=== PATIENT | male | born 2000 | race Caucasian/White ===

== ENCOUNTER 2022-07-03 12:06 | Emergency (ER) | payer OTHER, SELFPAY ==
[2022-07-03 12:10] VITALS: BP 127/69; PULSE 65; RESP 18; TEMP 36.8; O2SAT 100
--- OUTSIDE RECORDS SUMMARY | 2022-07-03 12:37 | XMS_ITS | Continuity of Care Document ---
Author Name Unknown Organization [facility] Address [address] [place] [address] Care Team Providers Care Swim Coach Name Role Phone Osorio Ariza Primary Care Physician Encounter [facility] Date(s): 03/06/22 - 03/06/22 [facility] [address] [place] [address] Encounter Diagnosis Strain of Achilles tendon(Discharge Diagnosis) - 03/06/22 Discharge Disposition: Home or Self Care Attending Physician: Osorio Livingston MD Admitting Physician: Osorio Livingston MD Allergies, Adverse Reactions, Alerts No Known Medication Allergies Immunizations Given and Recorded Vaccine Date Status Refusal Reason SARS-CoV-2 (COVID-19) mRNA-1273 vaccine 05/08/21 R ecorded SARS-CoV-2 (COVID-19) mRNA-1273 vaccine 04/14/21 R ecorded varicella virus vaccine 11/12/07 Recorded varicella virus vaccine 01/15/02 Recorded poliovirus vaccine, inactivated 11/16/04 Recorded poliovirus vaccine, inactivated 10/11/01 Recorded poliovirus vaccine, inactivated 03/20/01 Recorded poliovirus vaccine, inactivated 01/06/01 Recorded measles/mumps/rubella virus vaccine 11/16/04 Recor ded measles/mumps/rubella virus vaccine 01/15/02 Recor ded diphtheria/pertussis, acellular/tetanus 11/16/04 R ecorded diphtheria/pertussis, acellular/tetanus 12/17/02 R ecorded diphtheria/pertussis, acellular/tetanus 05/14/02 R ecorded diphtheria/pertussis, acellular/tetanus 10/11/01 R ecorded diphtheria/pertussis, acellular/tetanus 03/20/01 R ecorded diphtheria/pertussis, acellular/tetanus 01/06/01 R ecorded pneumococcal 7-valent vaccine 12/17/02 Recorded pneumococcal 7-valent vaccine 03/20/01 Recorded pneumococcal 7-valent vaccine 01/06/01 Recorded haemophilus b conjugate (PRP-T) vaccine 05/14/02 R ecorded haemophilus b conjugate (PRP-T) vaccine 10/11/01 R ecorded haemophilus b conjugate (PRP-T) vaccine 03/20/01 R ecorded haemophilus b conjugate (PRP-T) vaccine 01/06/01 R ecorded hepatitis B pediatric vaccine 01/15/02 Recorded hepatitis B pediatric vaccine 00 Recorded hepatitis B pediatric vaccine 00 Recorded Medications No Known Medications Vital Signs Most recent to oldest [Reference Range]: 1 Temperature Temporal Artery [36-38 Deg C ] 36.3 Deg C (03/06/22 12:57 PM) Peripheral Pulse Rate [60-100 bpm] 64 bp m (03/06/22 12:57 PM) Respiratory Rate [12-24 br/min] 18 br/mi n (03/06/22 12:57 PM) Blood Pressure [90-140/60-90 mmHg] 124/8 9mmHg (03/06/22 12:57 PM) Weight Dosing 97.52 kg (03/06/22 1:33 PM) Weight Estimated 97.52 kg (03/06/22 12:57 PM) Height/Length Dosing 188.000 cm (03/06/22 1:33 PM) Height/Length Estimated 188.000 cm (03/06/22 12:57 PM) Social History Social History Type Response Tobacco Never tobacco user T obacco Use:. Sex Male Hospital Discharge Instructions Patient Education 03/06/2022 13:35:27 Achilles Tendon Tear Achilles Tendon Tear The Achilles tendon is a cord-like band that connects the muscles of your lower leg (calf) to your heel. The Achilles tendon is the most common site of tendon tearing (rupture). What are the causes? This condition may be caused by: ??? Stress from a sudden stretching of the tendon. For example, this may occur when you land from ajump or when your heel drops down into a hole on uneven ground. ??? A hard, direct hit to the tendon. ??? Pushing off your foot forcefully, such as when sprinting, jumping, or changing direction while running. What increases the risk? You are more likely to develop this condition if you: ??? Are a runner. ??? Play sports that involve sprinting, running, or jumping. ??? Play contact sports. ??? Have a weak Achilles tendon. Tendons can weaken from aging, repeat injuries, and chronic tendinitis. ??? Are male. ??? Are 30???55 years of age. ??? Take a type of antibiotic medicine called quinolones. What are the signs or symptoms? Symptoms of this condition include: ??? Hearing a noise, like a pop or a snap, at the time of injury. ??? Severe, sudden pain in the back of the ankle. ??? Swelling and bruising. ??? Inability to actively point your toes down. ??? Pain when standing or walking. ??? A feeling of reduced strength when you step on the affected foot. How is this diagnosed? This condition is usually diagnosed based on a physical exam. You may also have imaging tests, such as: ??? Ultrasound. ??? X-rays. ??? MRI. How is this treated? This condition may be treated with: ??? Rest. ??? Ice applied to the area. ??? Pain medicine. ??? Crutches. ??? A cast, splint, or other device to keep the ankle from moving (immobilized). ??? Heel wedges to reduce the stretch on your tendon as it heals. ??? Surgery. This option may depend on your age and your activity level. Follow these instructions at home: Medicines ??? Take wwru-mbo-idwaokx and prescription medicines only as told by your health care provider. ??? Ask your health care provider if the medicine prescribed to you: ??? Requires you to avoid driving or using heavy machinery. ??? Can cause constipation. You may need to take these actions to prevent or treat constipation: ??? Drink enough fluid to keep your urine pale yellow. ??? Take kaoy-mia-lhgvopl or prescription medicines. ??? Eat foods that are high in fiber, such as beans, whole grains, and fresh fruits and vegetables. ??? Limit foods that are high in fat and processed sugars, such as fried or sweet foods. If you have a cast: ??? Do not stick anything inside the cast to scratch your skin. Doing that increases your risk of infection. ??? You may put lotion on dry skin around the edges of the cast. Do not put lotion on the skin underneath the cast. If you have a splint or brace: ??? Wear it as told by your health care provider. Remove it only as told by your health care provider. ??? Loosen it if your toes tingle, become numb, or turn cold and blue. If you have a cast, splint, or brace: ??? Keep it clean and dry. ??? Check the skin around it every day. Tell your health care provider about any concerns. ??? Ask your health care provider when it is safe to drive if you have it on a leg or foot that youuse for driving. Bathing ??? Do not take baths, swim, or use a hot tub until your health care provider approves. Ask your health care provider if you may take showers. You may only be allowed to take sponge baths. ??? If the cast, splint, or brace is not waterproof: ??? Do not let it get wet. ??? Cover it with a watertight covering when you take a bath or shower. Managing pain, stiffness, and swelling ??? If directed, put ice on the injured area. ??? If you have a removable splint or brace, remove it as told by your health care provider. ??? Put ice in a plastic bag. ??? Place a towel between your skin and the bag or between your cast and the bag. ??? Leave the ice on for 20 minutes, 2???3 times a day. ??? Move your toes often to avoid stiffness and to lessen swelling. ??? Raise (elevate) the injured area above the level of your heart while you are sitting or lying down. Activity ??? Return to your normal activities as told by your health care provider. Ask your health care provider what activities are safe for you. ??? Do not use the injured leg to support your body weight until your health care provider says that you can. Use crutches as told by your health care provider. ??? Ask your health care provider which exercises are safe for you. General instructions ??? Do not put pressure on any part of a cast or splint until it is fully hardened. This may take several hours. ??? Do not use any products that contain nicotine or tobacco, such as cigarettes, e-cigarettes, andchewing tobacco. These can delay healing. If you need help quitting, ask your health care provider. ??? Use heel wedges if told by your health care provider. ??? Keep all follow-up visits as told by your health care provider. This is important. How is this prevented? Do exercises exactly as told by your therapist or health care provider and adjust them as directed. ??? Warm up and stretch before being active. ??? Cool down and stretch after being active. ??? Rest between periods of activity. ??? Use equipment that fits you. Contact a health care provider if you have: ??? More pain and swelling. ??? Pain that is not controlled with medicines. ??? New symptoms or symptoms that get worse. ??? Problems moving your toes or foot. ??? Warmth in your foot. ??? A fever. Summary ??? An Achilles tendon tear is an injury that involves a tear in this tendon. ??? This injury typically occurs in runners or athletes who play sports that involve sprinting, running, or jumping. ??? An Achilles tendon tear causes sudden severe pain in your ankle and an inability to point your foot down. ??? Treatment for this injury may include rest, ice, and pain medicines. In some cases, surgery maybe needed. This information is not intended to replace advice given to you by your health care provider. Make sure you discuss any questions you have with your health care provider. Document Revised: 04/25/2021 Document Reviewed: 04/25/2021 [employer] Patient Education ?? 2021 [employer] Follow Up Care 03/06/2022 12:57:16 With:Follow up with Orthopedic Address: [address] [place] [phone] When:2 to 4 days Physician Emergency department Note * Uche Quigley MD: PERFORM Event Display: ED Note Physician Authored Date: [id number] KENTRELL MORENO I :2000 Age:21 years Sex:Male Visit Date:03/06/2022 Primary Care Physician: Osorio Ariza DO Basic Information Time Seen: Uche Quigley MD / 03/06/2022 13:48 Chief Complaint Hurt L heel last night playing basketball, ran into wall with right foot, felt immediate pain. Pt states I can't even walk on it, pt limped into traige. History Of Present Illness: 21-year-old male??presents with right lower extremity injury and Achilles pain after he was??running and playing basketball and landed with his foot partially up against the wall??sustaining??pain tohis??right heel was unable to walk after that is having difficulty walking since that time. ??Otherwise asymptomatic. Review of Systems: Constitutional:?No??fevers,?No??chills,?No??sweats Eye:?No??recent visual problems ENT:?No??ear pain,?No??nasal congestion,?No??sore throat Respiratory:?No??shortness of breath,?No??cough Cardiovascular:?No??Chest pain,?No??palpitations,?No??syncope Gastrointestinal:?Nonausea,?No??vomiting,?No??diarrhea Genitourinary:?No??hematuria Wisam/Lymph:?No??bruising tendency,?No??swollen lymph glands Endocrine:?No??excessive thirst,??No??excessive hunger Musculoskeletal:??No??back pain,??No??neck pain,??Positive for??right leg pain Integumentary:?No??rash,?No??pruritus,?No??abrasions Neurologic: Alert & oriented X 4 Psychiatric:?No??anxiety,?No??depression Physical Exam Vitals & Measurements T:??36.3?C ??(Temporal Artery)?? HR:??64??(Peripheral)?? RR:??18?? BP:??124/89?? SpO2:??98%?? HT:??188.000??cm?? WT:??97.52??kg??(Estimated)?? Pain Score:??8?? O2 Therapy:??Room air?? General: Alert and oriented, well nourished,?No??acute distress Eye: PERRL, EOMI,?Normal??conjunctiva HENT: Normocephalic, clear tympanic membranes,?Normal?? hearing, moist oral mucosa,?No??scleral icterus,?No??sinus tenderness Neck: Supple, non-tender,?No??carotid bruits,?No??JVD,?No??lymphadenopathy Lungs: Clear to auscultation and percussion,?Non-labored?? respiration Heart:?Normal?? rate,?Regular??rhythm,?No??murmur,?No??gallop,?No??edema Abdomen: Soft, non-tender, non-distended,?Normal?? bowel sounds,?No??masses Musculoskeletal:??Focal tenderness to the right Achilles and heel no significant swelling to the area, plantar flexion dorsiflexion intact but limited secondary to pain Skin: Skin is warm, dry and pink,?No??rashes,?No??lesions Neurologic: Awake, alert and oriented X4, CN II-XII intact Psychiatric: Cooperative, appropriate mood and affect Medical Decision Makin-year-old male presents with right Achilles pain??after he was running playing basketball and landed with his foot partially up against a wall. ??He was unable to walk after this. ??Vital stable. ??Neurovascular exam right lower extremity is normal.?? He has palpable tenderness to the right Achilles and heel but no significant surrounding swelling. ??Bedside ultrasound was performed, it appears that the Achilles tendon??is intact. ??Bender's test is negative,??and he does have??appropriate??dorsiflexion and plantarflexion with squeezing and releasing??bilateral calfs.?? Patient most likely presenting with??Achilles tendon strain versus partial??rupture. ??He was??placed in crutches because he is nonambulatory, placed in a boot as well, Tylenol Motrin as needed pain, orthopedics follow-up. ??Discharges??in stable??condition, return precautions to the ED. Procedure No Qualifying Data Assessment/Plan 1.??Strain of Achilles tendon??S86.019A Ordered: Discharge Patient, 03/06/22 14:34:00 EST, Home Independently, Constant Indicator ?? Patient Education Achilles Tendon Tear Follow Up With When Contact Information Follow up with Orthopedic Within 2 to [address] [place] [phone]- [phone] Additional Instructions: Problem List/Past Medical History Ongoing No qualifying data Historical No qualifying data Allergies No Known Medication Allergies Social History Electronic Cigarette/Vaping Electronic Cigarette Use: Never. Tobacco Never tobacco user Tobacco Use:. Electronically Signed on 03/06/22 02:35 PM Uche Quigley MD Emergency department Discharge instructions * Uche Quigley MD: PERFORM Event Display: ED Discharge Information Authored Date: [id number] KENTRELL MORENO I :2000 Age:21 years Sex:Male Visit Date:03/06/2022 Primary Care Physician: Osorio Ariza DO Discharge Instructions We would like to thank you for allowing us to assist you with your healthcare needs. The following includes patient education materials and information regarding your injury/illness. Diagnosis from Today's Visit Strain of Achilles tendon Discharge Vitals Temperature??(Temporal Artery) 97.3 ??F (36.3 ??C) Heart Rate??(Peripheral) 64 Respiratory Rate?? 18 Blood Pressure?? 124/89?? Height?? 74.02 in (188.000 cm) Weight??(Estimated) 215.03 lb (97.52 kg) Allergies No Known Medication Allergies What to Do Next Instructions from Your Care Team [facility] orthopedics follow-up, please call [phone] to make an appointment. You Need to Schedule the Following Appointments Follow Up with??Follow up with Orthopedic When:??Within 2 to 4 days Where: [address] [place] [address] [phone] You were treated today on an emergency basis; it may be larry to contact your primary care provider to notify them of your visit today. You may have been referred to your regular doctor or a specialist, please follow up as instructed. If your condition worsens or you can't get in to see the doctor, contact the Emergency Department. Education Materials Achilles Tendon Tear The Achilles tendon is a cord-like band that connects the muscles of your lower leg (calf) to your heel. The Achilles tendon is the most common site of tendon tearing (rupture). What are the causes? This condition may be caused by: ? Stress from a sudden stretching of the tendon. For example, this may occur when you land from a jump or when your heel drops down into a hole on uneven ground. ? A hard, direct hit to the tendon. ? Pushing off your foot forcefully, such as when sprinting, jumping, or changing direction while running. What increases the risk? You are more likely to develop this condition if you: ? Are a runner. ? Play sports that involve sprinting, running, or jumping. ? Play contact sports. ? Have a weak Achilles tendon. Tendons can weaken from aging, repeat injuries, and chronic tendinitis. ? Are male. ? Are 30???55 years of age. ? Take a type of antibiotic medicine called quinolones. What are the signs or symptoms? Symptoms of this condition include: ? Hearing a noise, like a pop or a snap, at the time of injury. ? Severe, sudden pain in the back of the ankle. ? Swelling and bruising. ? Inability to actively point your toes down. ? Pain when standing or walking. ? A feeling of reduced strength when you step on the affected foot. How is this diagnosed? This condition is usually diagnosed based on a physical exam. You may also have imaging tests, such as: ? Ultrasound. ? X-rays. ? MRI. How is this treated? This condition may be treated with: ? Rest. ? Ice applied to the area. ? Pain medicine. ? Crutches. ? A cast, splint, or other device to keep the ankle from moving (immobilized). ? Heel wedges to reduce the stretch on your tendon as it heals. ? Surgery. This option may depend on your age and your activity level. Follow these instructions at home: Medicines ? Take uzvy-yfd-wlqasqo and prescription medicines only as told by your health care provider. ? Ask your health care provider if the medicine prescribed to you: ? Requires you to avoid driving or using heavy machinery. ? Can cause constipation. You may need to take these actions to prevent or treat constipation: ? Drink enough fluid to keep your urine pale yellow. ? Take tnzf-mdw-kodadnp or prescription medicines. ? Eat foods that are high in fiber, such as beans, whole grains, and fresh fruits and vegetables. ? Limit foods that are high in fat and processed sugars, such as fried or sweet foods. If you have a cast: ? Do not stick anything inside the cast to scratch your skin. Doing that increases your risk of infection. ? You may put lotion on dry skin around the edges of the cast. Do not put lotion on the skin underneath the cast. If you have a splint or brace: ? Wear it as told by your health care provider. Remove it only as told by your health care provider. ? Loosen it if your toes tingle, become numb, or turn cold and blue. If you have a cast, splint, or brace: ? Keep it clean and dry. ? Check the skin around it every day. Tell your health care provider about any concerns. ? Ask your health care provider when it is safe to drive if you have it on a leg or foot that you usefor driving. Bathing ? Do not take baths, swim, or use a hot tub until your health care provider approves. Ask your healthcare provider if you may take showers. You may only be allowed to take sponge baths. ? If the cast, splint, or brace is not waterproof: ? Do not let it get wet. ? Cover it with a watertight covering when you take a bath or shower. Managing pain, stiffness, and swelling ? If directed, put ice on the injured area. ? If you have a removable splint or brace, remove it as told by your health care provider. ? Put ice in a plastic bag. ? Place a towel between your skin and the bag or between your cast and the bag. ? Leave the ice on for 20 minutes, 2???3 times a day. ? Move your toes often to avoid stiffness and to lessen swelling. ? Raise (elevate) the injured area above the level of your heart while you are sitting or lying down. Activity ? Return to your normal activities as told by your health care provider. Ask your health care provider what activities are safe for you. ? Do not use the injured leg to support your body weight until your health care provider says that you can. Use crutches as told by your health care provider. ? Ask your health care provider which exercises are safe for you. General instructions ? Do not put pressure on any part of a cast or splint until it is fully hardened. This may take several hours. ? Do not use any products that contain nicotine or tobacco, such as cigarettes, e- cigarettes, and chewing tobacco. These can delay healing. If you need help quitting, ask your health care provider. ? Use heel wedges if told by your health care provider. ? Keep all follow-up visits as told by your health care provider. This is important. How is this prevented? Do exercises exactly as told by your therapist or health care provider and adjust them as directed. ? Warm up and stretch before being active. ? Cool down and stretch after being active. ? Rest between periods of activity. ? Use equipment that fits you. Contact a health care provider if you have: ? More pain and swelling. ? Pain that is not controlled with medicines. ? New symptoms or symptoms that get worse. ? Problems moving your toes or foot. ? Warmth in your foot. ? A fever. Summary ? An Achilles tendon tear is an injury that involves a tear in this tendon. ? This injury typically occurs in runners or athletes who play sports that involve sprinting, running, or jumping. ? An Achilles tendon tear causes sudden severe pain in your ankle and an inability to point your footdown. ? Treatment for this injury may include rest, ice, and pain medicines. In some cases, surgery may be needed. This information is not intended to replace advice given to you by your health care provider. Make sure you discuss any questions you have with your health care provider. Document Revised: 04/25/2021 Document Reviewed: 04/25/2021 [employer] Patient Education ?? 2021 [employer] Patient/Outreach Counselor Signature Patient Name:KENTRELL MORENO I I have received this information and my questions have been answered. Patient/Outreach Counselor Name: Patient/Outreach Counselor Signature: Relationship to Patient: Witness Name/Signature: Date: Electronically Signed on: 03/06/2022 14:35 ESTSigned by:[facility] Patient Care team information Personnel Name: Osorio Ariza DO Address: Address: [facility] [address] [place] [address] [place] [address]- [place]
--- NOTE | 2022-07-03 13:28 | W.ED.GENAD ---
Discharge Plan Disposition Patient Disposition: Home Discharge Details Clinical Impression: Laceration of hand Primary Care Provider: Unknown,Unknown ED Provider: David Herndon Home Meds and New Rx's Prescriptions: New cephalexin 500 mg tablet 500 mg PO QID 3 Days Qty: 12 0RF Discharge Instructions Instructions: Laceration (ED) Additional Instructions: Watch for any signs of infection and return immediately to the emergency department if these occur. Otherwise keep dressing in place for the next 24-48 hours and then keep wound clean and dry. Return to the emergency department 12 days for suture removal. Stand Alone Forms: Work Release Discharge Data Discharge Date/Time-TO BE ENTERED AT DEPARTURE: 07/03/22 13:34 Medical Decision Making Patient presenting to the emergency department for chief complaint of laceration to left hand. Patient was at work when he was using a fiberglass boat finisher that slipped and struck his left hand. He states a laceration above his MCP of the third digit. Physical exam shows a 1 cm laceration above the MCP. Strength sensation and tendon function is all intact. Visualizing the wound to base does show visible tendon but no tendon damage is noted. Wound was thoroughly cleansed and irrigated and closed with 4-0 Prolene using 2 interrupted sutures. Patient placed on Keflex for 3 days due to mechanism of injury and high potential for infection, patient was updated with tetanus due to being unaware of when last tetanus was administered, and patient to monitor for signs of infection and return as needed. After discussion of diagnosis and plan of care patient has no further needs, questions, or concerns and states clear understanding to return to the emergency department for any worsening symptoms. This documentation was generated using [employer] dictation system, please disregard any oddities of phrase or misspellings. HPI General Mode of arrival: ambulatory. Date/Time Provider Initiated Documentation: 07/03/22 12:28. Limitations to Documentation: no limitations. Information obtained by: patient and RN notes reviewed. History of Present Illness 21 year old M presents to the emergency department with the chief complaint of Left hand laceration, described as mild, Quality is described as sharp, and is localized to the left and upper extremity. Patient reports no radiation. Patient started experiencing this hour(s) (3) and it has been constant. No relieving factors improve symptom(s), No exacerbating factors reported . Patient notes no other symptoms.. Patient did receive the following treatments prior to arrival, none Related Data Home Medications Medication Instructions Recorded Confirmed cephalexin 500 mg tablet 500 mg PO QID 3 days #12 tabs 07/03/22 Previous Rx's Medication Instructions Recorded cephalexin 500 mg tablet 500 mg PO QID 3 days #12 tabs 07/03/22 General Stated Complaint: Laceration MIKAEL: 4 Review of Systems Cardiovascular Cardiovascular: Denies syncope and Denies lightheadedness Musculoskeletal Musculoskeletal: Denies deformity, Denies limited range of motion and Denies numbness Integumentary/Breasts Skin/Breast: Reports as per HPI Neurologic Neurologic: Denies syncope, Denies numbness and Denies paresthesias PFSH All Active Problems Laceration of hand (Acute) Social History Smoking/Tobacco Use Status: Never Smoking risk assessment performed?: Yes Alcohol Intake: never Substance use type: does not use Do you feel safe at home: Yes Do you feel safe in your relationship?: Yes Exam Const General: cooperative and no acute distress Orientation: alert, awake and oriented x3 Limitations: mental status not altered Resp Effort & Inspection: normal respiratory effort and able to speak in complete sentences Cardio Rate: regular rate Rhythm: regular rhythm Neuro General: patient alert, patient awake, patient oriented x3, gait normal, tone normal, moves all extremities, normal light touch, pain and propioception and no focal motor deficits Motor: no movement abnormalities noted Sensory Exam: no sensory deficits noted Extrem General: normal exam except as noted Left upper extremity: hand Details: neuromotor exam normal, neurosensory exam normal, tendon exam normal and laceration (Over MCP) 3rd digit dorsal aspect proximal Details: linear, actively bleeding, with motor nerve function intact and with sensation intact; no foreign body present and not contaminated Course Vital Signs Vital signs: Vital Signs Temperature 36.8 C 07/03/22 12:10 Pulse 65 07/03/22 12:10 Respiratory Rate 18 07/03/22 12:10 Blood Pressure 127/69 07/03/22 12:10 Pulse Oximetry 100 07/03/22 12:10 Temperature 36.8 C 07/03/22 12:10 Temperature Source Oral 07/03/22 12:10 Pulse 65 07/03/22 12:10 Respiratory Rate 18 04/18/23 12:10 Respiratory Effort Normal, Non-Labored 07/03/22 12:39 Blood Pressure 127/69 07/03/22 12:10 Blood Pressure Position Sitting 07/03/22 12:10 Pulse Oximetry 100 07/03/22 12:10 Oxygen Delivery Method Room Air 07/03/22 12:10 Oxygen Flow Rate 0 07/03/22 12:10 Pain Level 2 07/03/22 12:10 Procedures Laceration Laceration 1: Site: hand Side (If applicable): left Size (cm): 1 Description: linear and clean Depth: simple, single layer Local Anesthetic: Lidocaine 1% Amount of anesthesia used (mL): 1 Pre-repair: wound explored, irrigated extensively and deep structures intact Skin layer closed with: other (Prolene) Size (cm): 4-0 Number of sutures: 2 Technique: simple, interrupted
[2022-07-03] MEDS: Lidocaine 1% Multi-Dose 50 ML VIAL (13:35)
== END 2022-07-03 13:34 | disposition home or self-care (01) ==
PROVIDERS: Emergency Provider Nurse Practitioner Family
DX: S61.412A Laceration without foreign body of left hand, initial encounter (principal); Y99.0 Civilian activity done for income or pay; W31.89XA Contact with other specified machinery, initial encounter; Z23 Encounter for immunization
CPT/HCPCS: 12001; 90471; 99283